=== PATIENT | male | born 1970 | race Caucasian/White ===

== ENCOUNTER 2016-07-15 05:56 | Emergency (ER) | payer OTHER ==
--- NOTE | 2016-07-15 06:01 | EDPHY ---
H & P Source: Patient HPI/ROS: HPI CHIEF COMPLAINT: Right posterior shoulder pain status post mechanical trip and fall HISTORY OF PRESENT ILLNESS: This patient very pleasant 46-year-old male presents emergency room by private vehicle with right shoulder pain. Patient tells me that approximately 20 minutes ago slipped and fell backwards landing directly on his right posterior shoulder. Denies head strike or neck pain denies chest pain or shortness of breath. His pain is located focally in the right posterior scapula. Pain with range of motion of his right shoulder however does not have any anterior lateral humerus pain. His clavicle is nontender. Denies any other complaints. He tells me his pain is 6/10. He has good perpetual inventory clerk strength, full range of motion of the right arm however has pain to the shoulder specifically over the posterior scapula. Past Medical History: Denies significant medical history Past Surgical History: denies significant surgical history Social History: Denies use of drugs alcohol tobacco products Family History: Noncontributory ROS REVIEW OF SYSTEMS: A comprehensive 10 point review of systems is otherwise negative aside from elements mentioned in the history of present illness. Exam Constitutional triage nursing summary reviewed, vital signs reviewed, awake/ alert. Eyes normal conjunctivae and sclera, EOMI, PERRLA. HENT normal inspection, atraumatic, moist mucus membranes, no epistaxis, neck supple/ no meningismus, no raccoon eyes. Respiratory clear to auscultation bilaterally, normal breath sounds, no respiratory distress, no wheezing. Cardiovascular rate normal, regular rhythm, no murmur, no edema, distal pulses normal. Gastrointestinal soft, non-tender, no rebound, no guarding, normal bowel sounds, no distension, no pulsatile mass. Genitourinary no CVA tenderness. Musculoskeletal right shoulder: tender palpation over the posterior scapula, he does have full range of motion of the right shoulder, distally neurovascular intact with good pulse, good cap refill. Good perpetual inventory clerk strength. No tenderness palpation over the clavicle or AC joint. No tenderness to palpation over the lateral humeral head. no midline vertebral tenderness, full range of motion, no calf swelling, no tenderness of extremities, no meningismus, good pulses, neurovascularly intact. Skin pink, warm, & dry, no rash, skin atraumatic. Neurologic awake, alert and oriented x 3, AAOx3, moves all 4 extremities equally, motor intact, sensory intact, CN II-XII intact, normal cerebellar, normal vision, normal speech. Psychiatric normal mood/affect. Heme/Lymph/Immune no lymphadenopathy. Differential Diagnosis: Includes but is not limited to in a particular order shoulder contusion, dislocation of the shoulder, scapular fracture, humerus fracture, AC joint separation Medical Decision Making: this patient had an x-ray of the right shoulder as well as x-ray two view of the chest. I did offer to place an IV in him for acute pain control however he has declined would like a pain pill. I have ordered him Mendon 10 mg. Re-evaluation: ED x-ray chest two view: I do not appreciate a pneumothorax, there is a isolated right posterior rib fracture displaced. ED x-ray right shoulder: this appears to be in normal alignment. Right-sided posterior rib fracture noted displaced. No noted pneumothorax. 0636: re-examination this patient is having ongoing right-sided pain it hurts when he takes a deep breath in the narcotic Mendon pain pills that I gave him has not really helped this pain he is agreeable for an IV establishment with IV fentanyl for pain control. Due to the amount of pain he is having will perform a CT scan of his chest without contrast to make sure there is no further rib fractures or pneumothorax. Patient signed over to Dr. Carrizales at 7am shift change. (Yared Ontiveros) Constitutional: Initial Vital Signs Temperature (C) 36.6 C 07/15/16 06:11 Heart Rate 73 07/15/16 06:11 Respiratory Rate 20 07/15/16 06:11 O2 Sat (%) 96 07/15/16 06:11 O2 Delivery Mode Room Air Allergies/Adverse Reactions: No Known Allergies Allergy (Unverified 12/27/11 22:49) Home Medications: Medication Instructions Recorded Multivitamins [Multivitamin (OTC)] 1 each PO DAILY 12/27/11 Amoxicillin 07/15/16 Medical Decision Making Other Provider: Patient signed out to me pending CT results. CT Chest read by Jeet as positive for two non-displaced rib fractures and mild non-displaced distal scapula fracture. No PTX. Patient has no midline back pain to suggest that compression fractures are acute. Patient advised on lung nodules and need for follow-up. (Vivek Carrizales) - Data Points Medications Given: Discontinued Medications Acetaminophen/Hydrocodone Bitart (Mendon 10/325) 1 tab PO EDNOW ONE Stop: 07/15/16 06:02 Last Admin: 07/15/16 06:20 Dose: Not Given Acetaminophen/Hydrocodone Bitart (Mendon 5/325) 2 tab PO EDNOW ONE Stop: 07/15/16 06:12 Last Admin: 07/15/16 06:12 Dose: 2 tab Fentanyl (Sublimaze) 100 mcg IVP EDNOW ONE Stop: 07/15/16 06:34 Last Admin: 07/15/16 06:56 Dose: 100 mcg Sodium Chloride (Ns) 1,000 mls @ 0 mls/hr IV ONCE ONE PRN Reason: Wide Open Stop: 07/15/16 06:34 Last Admin: 07/15/16 06:55 Dose: 1,000 mls Ondansetron HCl (Zofran) 4 mg IVP EDNOW ONE Stop: 07/15/16 06:35 Last Admin: 07/15/16 06:55 Dose: 4 mg Departure - Departure Disposition: Home, Routine, Self-Care Clinical Impression: Shoulder contusion Qualifiers: Encounter type: initial encounter Laterality: right Qualifier Code: (S40.011A) Contusion of right shoulder, initial encounter Rib fracture Qualifiers: Encounter type: initial encounter Rib fracture type: single rib Fracture type: closed Laterality: right Qualifier Code: (S22.31XA) Fracture of one rib, right side, initial encounter for closed fracture Scapula fracture Qualifiers: Encounter type: initial encounter Scapula location: other part of scapula Laterality: right Condition: Fair Instructions: Rib Fracture (ED), Rib Contusion (ED), Contusion in Adults (ED) Additional Instructions: 1. Return emergency room if develops any worsening symptoms includes shortness of breath, severe pain, can't take a deep breath in, if you have any questions or concerns. 2. Your Chest CT shows a few lung nodules which will need follow-up within the next year if you are a smoker. Follow-up with your primary doctor within one month. Referrals: Shantelle Varma MD [Medical Doctor] - As per Instructions
[2016-07-15] MEDS ORDERED: HYDROCODONE/APAP 5/325 TAB ONE ×2 (06:03)
[2016-07-15] MEDS ORDERED: HYDROCODONE/APAP 5/325 TAB PO ONE (06:11)
[2016-07-15] MEDS: HYDROCODONE/APAP 10/325 TAB PO ONE ×3 (06:12→06:20)
[2016-07-15] MEDS ORDERED: fentaNYL 100 MCG/2 ML INJ IVP ONE (06:33)
[2016-07-15] MEDS ORDERED: NS 1,000 ML IV ONE (06:33)
[2016-07-15] MEDS ORDERED: ONDANSETRON 4 MG/2 ML VIAL IVP ONE (06:34)
[2016-07-15] MEDS ORDERED: HYDROmorphONE/DILAUDID 1 MG/ML SYR IVP ONE (07:56)
--- NOTE | 2016-07-15 08:18 | CT ---
Unenhanced CT Chest July 15, 2016 0715 hours History: Fall, right rib and scapular pain. Comparison: PA and lateral chest same day at 0549 hours. Technique: Axial unenhanced images were obtained through the chest with multiplanar reformations. Findings: There is diffuse peribronchial thickening. Numerous tiny pulmonary nodules are present including a 4 mm right lower lobe noncalcified nodule ( series 4 image 168) and a 4 mm left upper lobe nodule (image 107). There is scattered mucous plugging and atelectasis. An azygous fissure is noted. A small bleb is noted adjacent to the azygous fissure. Heart size is normal. The aorta is normal caliber. No pathologically enlarged lymph nodes are identified. Nondisplaced lateral right fourth and fifth rib fractures are present. There is a nondisplaced fracture through the inferior right scapula extending to the angle of the scapula. There are multiple mild compression fractures in the visualized spine, including mild compression fractures at T1, T2, T7, T9, T11, and L1. These are age indeterminate. Moderate degenerative change is present in the visualized cervical spine from C5 through C7, with moderate spinal canal narrowing and moderate to severe left neural foraminal stenosis at both levels and mild to moderate right neural foraminal stenosis at C5-C6. Diffuse fatty infiltration is present in the liver. Impression: 1. Nondisplaced lateral right fourth and fifth rib fractures. 2. Nondisplaced inferior right scapular fracture. 3. Multiple mild compression fractures, age indeterminate. 4. Pulmonary nodules measuring up to 4 mm. In a nonsmoker without a cancer history, no further follow up would be required. In a smoker or someone with a history of cancer, unenhanced CT chest would be recommended for follow up in one year. 5. Bronchitis. 6. Fatty liver. 7. Additional findings as above. Findings discussed with Vivek Carrizales today at 0753 hours. The preliminary and final reports were concordant. POS99 MTDD
--- NOTE | 2016-07-15 08:26 | DX ---
Chest, Two Views July 15, 2016 0549 hours History: Fall, left shoulder pain. Comparison: None. Findings: Cardiac silhouette is within normal range. Right fourth and fifth rib fractures better iden tified on follow up CT. Right azygous lobe. Mild compression fractures mid to lower thoracic spine of indeterminate age. No pneumonia, congestive heart failure, pleural effusion, or pneumothorax. Impression: 1. Mild mid to lower thoracic compression fractures. 2. No pneumothorax.
[2016-07-15 08:31] VITALS: BP 148/102; PULSE 79; RESP 14; TEMP 98.2; O2SAT 91
--- NOTE | 2016-07-15 09:36 | DX ---
Right Shoulder , 3 Views History: Pain post trauma. Fall. Findings: The humeral head is well rounded and normally located. No shoulder joint fracture or disloc ation is identified. There is however a nondisplaced scapular tip fracture as well as a slightly disp laced anterolateral right fourth rib fracture. No apical pneumothorax is identified. Incidentally not ed is an azygos lobe. Impression: 1. Intact shoulder. 2. Scapular tip and right fourth rib fractures. Results discussed with Dr. Indira Lopez at 933 a.m.
== END 2016-07-15 08:30 | disposition home or self-care (01) ==
DX: S22.31XA Fracture of one rib, right side, initial encounter for closed fracture (principal); S42.191A Fracture of other part of scapula, right shoulder, initial encounter for closed fracture; S40.011A Contusion of right shoulder, initial encounter; W01.0XXA Fall on same level from slipping, tripping and stumbling without subsequent striking against object, initial encounter
CPT/HCPCS: 96374; J1170; J2405; J3010